=== PATIENT | male | born 1970 | race Two or more races ===

== ENCOUNTER 2018-04-27 10:13 | Outpatient (CLI) | payer OTHER ==
[~2018-04-27] VITALS: Ht 188 cm; Wt 149.7 kg
== END 2018-04-27 10:30 | disposition home or self-care (01) ==
LOC: OFIC 805 10:13
DX: G47.33 Obstructive sleep apnea (adult) (pediatric) (principal); M54.2 Cervicalgia; R51 Headache

== ENCOUNTER 2020-12-29 12:13 | Outpatient (CLI) | payer OTHER | END 2020-12-29 12:16 | disposition home or self-care (01) | LOC: LAB 12:13 | PROVIDERS: ATTEND Radiology Diagnostic Radiology | DX: N20.0 Calculus of kidney (principal) ==

== ENCOUNTER 2020-12-31 10:46 | Outpatient (CLI) | payer OTHER | END 2020-12-31 11:04 | disposition home or self-care (01) | LOC: TOM 10:46 | PROVIDERS: ATTEND Family Medicine | DX: Z00.00 Encounter for general adult medical examination without abnormal findings (principal); R05 Cough; R06.2 Wheezing ==

== ENCOUNTER 2021-01-13 11:55 | Emergency (ER) | payer OTHER ==
[~2021-01-13] VITALS: Ht 188 cm; Wt 158.8 kg
[2021-01-13] MEDS ORDERED: TYLENOL325 MG (15:03)
[2021-01-13] MEDS ORDERED: PEPCID AC20 MG PO (17:18)
== END 2021-01-13 17:27 | disposition home or self-care (01) ==
LOC: ER 11:55
DX: R10.84 Generalized abdominal pain (principal)

== ENCOUNTER 2021-09-24 12:54 | Emergency (ER) | payer OTHER ==
[~2021-09-24] VITALS: Ht 188 cm; Wt 154.2 kg
[~2021-09-24 12:54] MED LIST: PEPCID AC20 MG PO; TYLENOL325 MG
[2021-09-24] MEDS ORDERED: RAYOS1 MG PO (13:44)
[2021-09-24] MEDS ORDERED: CEPHALEXIN750 MG PO (13:44)
[2021-09-24] MEDS ORDERED: WAL-ITIN10 MG PO (13:45)
== END 2021-09-24 18:07 | disposition home or self-care (01) ==
LOC: ER 12:54
DX: L03.116 Cellulitis of left lower limb (principal); M25.473 Effusion, unspecified ankle; I10 Essential (primary) hypertension; Z20.822 Contact with and (suspected) exposure to COVID-19

== ENCOUNTER 2022-01-18 11:12 | Emergency (ER) | payer OTHER ==
[~2022-01-18] VITALS: Ht 188 cm; Wt 195.0 kg
[~2022-01-18 11:12] MED LIST changes: +CEPHALEXIN750 MG PO; +RAYOS1 MG PO; +WAL-ITIN10 MG PO
[2022-01-18] MEDS ORDERED: COZAAR50 MG PO (11:28)
[2022-01-18] MEDS ORDERED: CLARITHROMYCIN500 M1 PO (11:29)
[2022-01-18] MEDS ORDERED: AMOX1TAB5 PO (11:30)
[2022-01-18] MEDS ORDERED: PEPCID AC20 MG PO (11:30)
[2022-01-18] MEDS ORDERED: AZITHROMYCIN1 GM PO (11:31)
== END 2022-01-18 14:15 | disposition home or self-care (01) ==
LOC: ER 11:12
DX: L97.329 Non-pressure chronic ulcer of left ankle with unspecified severity (principal); R06.02 Shortness of breath

== ENCOUNTER 2022-01-24 09:56 | Emergency (ER) | payer OTHER ==
[~2022-01-24] VITALS: Ht 188 cm; Wt 186.0 kg
[~2022-01-24 09:56] MED LIST changes: +AMOX1TAB5 PO; +AZITHROMYCIN1 GM PO; +CLARITHROMYCIN500 M1 PO; +COZAAR50 MG PO
[2022-01-24] MEDS ORDERED: CEPHALEXIN750 MG (10:10)
[2022-01-24] MEDS ORDERED: WIXELA 500-501 EACH IH (10:10)
[2022-01-24] MEDS ORDERED: ATARAX25 MG PO (12:03)
[2022-01-24] MEDS ORDERED: ZYRTEC10 M3 PO (12:03)
== END 2022-01-24 12:51 | disposition home or self-care (01) ==
LOC: ER 09:56
DX: T78.40XA Allergy, unspecified, initial encounter (principal); X58.XXXA Exposure to other specified factors, initial encounter; Z91.013 Allergy to seafood; I10 Essential (primary) hypertension

== ENCOUNTER 2022-01-31 09:33 | Outpatient (CLI) | payer OTHER ==
[~2022-01-31 09:33] MED LIST changes: +ATARAX25 MG PO; +CEPHALEXIN750 MG; +WIXELA 500-501 EACH IH; +ZYRTEC10 M3 PO
== END 2022-01-31 09:34 | disposition home or self-care (01) ==
LOC: NUCLEAR 09:33
PROVIDERS: ATTEND Specialist
DX: I73.9 Peripheral vascular disease, unspecified (principal); Z91.013 Allergy to seafood

== ENCOUNTER 2022-02-01 09:57 | Outpatient (CLI) | payer OTHER | END 2022-02-01 09:59 | disposition home or self-care (01) | LOC: NUCLEAR 09:57 | PROVIDERS: ATTEND Specialist | DX: I87.2 Venous insufficiency (chronic) (peripheral) (principal); Z91.013 Allergy to seafood ==

== ENCOUNTER → 2022-09-26 | Emergency (ER) | payer OTHER ==
[~2022-09-26] VITALS: Ht 167.6 cm; Wt 161.0 kg
== END | disposition home or self-care (01) ==
LOC: ER 11:51 → MEDJ 19:22 → ER 19:22 → MEDJ 20:07
DX: I11.0 Hypertensive heart disease with heart failure (principal); I50.9 Heart failure, unspecified; L03.116 Cellulitis of left lower limb; N39.0 Urinary tract infection, site not specified; E87.8 Other disorders of electrolyte and fluid balance, not elsewhere classified; N17.9 Acute kidney failure, unspecified; J18.9 Pneumonia, unspecified organism; Z20.822 Contact with and (suspected) exposure to COVID-19

== ENCOUNTER 2024-11-23 14:24 | Inpatient (IN) | payer OTHER ==
[~2024-11-23] VITALS: Ht 182.9 cm; Wt 158.8 kg
[2024-11-23] MEDS ORDERED: AMIODARONE HCL100 MG PO (15:21)
[2024-11-23] MEDS ORDERED: HYDRALAZINE HC100 MG PO (15:22)
[2024-11-23] MEDS ORDERED: PEPCID AC20 MG PO (15:22)
[2024-11-23] MEDS ORDERED: LIPITOR40 M1 PO (15:22)
[2024-11-23] MEDS ORDERED: VITAMIN D310 MCG/1 M PO (15:22)
[2024-11-23] MEDS ORDERED: FARXIGA10 MG PO (15:22)
[2024-11-23] MEDS ORDERED: DOXAZOSIN MESYLA2 MG PO (15:22)
[2024-11-23] MEDS ORDERED: TOPROL XL100 M1 PO (15:23)
[2024-11-23] MEDS ORDERED: XARELTO20 MG PO (15:23)
[2024-11-23] MEDS ORDERED: ALDACTONE25 MG PO (15:23)
--- NOTE | 2024-11-23 15:33 | NUR ---
PACIENTE ALERTA Y ORIENTADO X3. REFIERE VENIR POR ULCERA EN QUINNNA СВЕТЛАНА. PACIENTE REFERIDO POR DR. MAIA AVILES PARA CONSULTA CON DR. BRADY. SE ESTIMAN VITALES Y SE UBICA.
[2024-11-23] MEDS ORDERED: 0.9 % SODIUM CHLORIDE 1,000 ML IV ONE (16:30)
[2024-11-23] MEDS ORDERED: PIPERACILLIN/TAZOBACTAM SODIUM 3.375 GM VIAL IV ONE ×2 (16:30→16:34)
--- NOTE | 2024-11-23 16:44 | NUR ---
SE ORIENTA A PACIENTE SOBRE [place] MEDICO, REFIERE ENTENDER. SE REALIZAN MUESTRAS DE LABORATORIO BAJO MEDIDAS ASEPTICAS. SE ADMINISTRAN MEDICAMENTOS MELISA ORDEN MEDICA. PENDIENTE RE-EVALUACION MEDICA.
[2024-11-23 17:15] LABS: HEMATOCRIT 41.1 % (39.0-48.0); HEMOGLOBIN 14.7 g/dL (13-16.00); MEAN CELL VOLUME 88.3 fL (80.0-100.00); MEAN CORPUSCULAR HEMOGLOBIN 31.5 pg (27.00-32.0); MEAN CORPUSCULAR HGB CONC 35.7 g/dl (32.0-36.0); RED BLOOD COUNT 4.66 M/uL (4.00-6.00)
[2024-11-23 17:29] LABS: PLATELET COUNT 73 K/uL (150-450)
[2024-11-23 17:49] LABS: INR 1.37; PARTIAL THROMBOPLASTIN TIME 37.4 SECONDS (22.0-34.0); PROTHROMBIN TIME 14.6 SECONDS (9.0-11.5)
[2024-11-23 17:52] LABS: ALBUMIN 3.5 gm/dL (3.4-5.0); BILIRUBIN TOTAL 1.66 mg/dL (0.3-1.2); CALCIUM 9.4 mg/dL (8.5-10.1); CREATININE SERUM 2.63 mg/dL (0.70-1.30); GFR 25.71; GLOBULINA 4.1 G/DL (2.4-3.5); POTASSIUM 4.27 mEq/L (3.5-5.1); TOTAL PROTEIN 7.6 gm/dL (6.4-8.2)
[2024-11-23 19:03] LABS: PH,URINE 5.5 (5.0-8.0); URINE APPEARANCE Clear; URINE BILIRRUBIN Negative (NEGATIVE); URINE BLOOD Negative; URINE COLOR Dark Yellow; URINE GLUCOSE Negative (NEGATIVE); URINE KETONE Trace (NEGATIVE); URINE LEUKOCYTE Negative; URINE NITRATE Negative; URINE UROBILINOGEN 0.2 E.U./dl
[2024-11-23 19:07] LABS: URINE BACTERIA 4.8 uL (0.0-1933); URINE EPITHELIAL CELLS 3.9 uL (0.0-38.8)
[2024-11-23 19:27] LABS: URINE CAST 1.17 uL (0.0-1.40); URINE PROTEIN 100 (NEGATIVE); URINE WBC 1.4 uL (0.0-23.2)
[2024-11-23] MEDS ORDERED: 0.9 % SODIUM CHLORIDE 1,000 ML IV SCH (23:30)
[2024-11-24 00:11] VITALS: BP 160/80; O2SAT 98
[2024-11-24 03:26] VITALS: BP 158/80
[2024-11-24 03:47] VITALS: BP 120/56
[2024-11-24] MEDS ORDERED: METOPROLOL SUCCINATE 100 MG TAB.SR.24H PO SCH (09:00)
[2024-11-24] MEDS ORDERED: SPIRONOLACTONE 25 MG TABLET PO SCH (09:00)
[2024-11-24] MEDS ORDERED: AMIODARONE HCL 200 MG TABLET PO SCH (09:00)
[2024-11-24] MEDS ORDERED: hydrALAZINE HCL 50 MG TABLET PO SCH (09:00)
[2024-11-24] MEDS ORDERED: PATIENTS OWN MEDICATION (MEDICAMENTO EN PISO) PO SCH (09:00)
[2024-11-24] MEDS ORDERED: DOXAZOSIN MESYLATE 2 MG TABLET PO SCH (09:00)
[2024-11-24] MEDS ORDERED: PANTOPRAZOLE SODIUM 40 MG in 0.9 % SODIUM CHLORIDE 8 ML IV PUSH SCH (09:00)
[2024-11-24] MEDS ORDERED: RIVAROXABAN 20 MG TABLET PO SCH (09:00)
[2024-11-24 09:18] VITALS: BP 112/68
[2024-11-24] MEDS ORDERED: FUROsemide 20 MG TABLET PO SCH (11:32)
[2024-11-24] MEDS ORDERED: MEROPENEM 500 MG/VIAL VIAL IV SCH (13:00)
[2024-11-24] MEDS ORDERED: ATORVASTATIN CALCIUM 40 MG TABLET PO SCH (17:00)
[2024-11-25 03:23] VITALS: BP 127/85
[2024-11-25 07:50] LABS: HEMATOCRIT 41.2 % (39.0-48.0); HEMOGLOBIN 14.1 g/dL (13-16.00); MEAN CELL VOLUME 90.1 fL (80.0-100.00); MEAN CORPUSCULAR HEMOGLOBIN 30.8 pg (27.00-32.0); MEAN CORPUSCULAR HGB CONC 34.1 g/dl (32.0-36.0); RED BLOOD COUNT 4.57 M/uL (4.00-6.00); RED CELL DISTRIBUTION WIDTH 14.8 % (11.5-14.5)
[2024-11-25 08:07] LABS: ALBUMIN 3.1 gm/dL (3.4-5.0); BILIRUBIN TOTAL 1.58 mg/dL (0.3-1.2); CALCIUM 8.7 mg/dL (8.5-10.1); CHOL HDL RATIO 1.9 (0-5.0); CREATININE SERUM 2.37 mg/dL (0.70-1.30); GFR 28.99; GLOBULINA 3.2 G/DL (2.4-3.5); MAGNESIUM 1.9 mg/dL (1.8-2.4); POTASSIUM 4.28 mEq/L (3.5-5.1); TOTAL PROTEIN 6.3 gm/dL (6.4-8.2); TSH 1.55 uIU/mL (0.358-3.74)
[2024-11-25] MEDS ORDERED: LACTOBACILLUS ACIDOPHILUS 1 CAP CAP PO SCH (09:00)
[2024-11-25] MEDS ORDERED: CHLORHEXIDINE GLUCONATE 120 ML BOTTLE TOP SCH (09:00)
[2024-11-25 09:07] VITALS: BP 163/100; O2SAT 99
[2024-11-25 10:19] LABS: PLATELET COUNT 68 K/uL (150-450)
[2024-11-25] MEDS ORDERED: NIFEDIPINE 30 MG TAB.SA.OSM PO NR (12:00)
[2024-11-25 17:04] VITALS: BP 162/118
[2024-11-26 01:06] VITALS: BP 160/80
[2024-11-26 07:37] LABS: ALBUMIN 3.1 gm/dL (3.4-5.0); BILIRUBIN TOTAL 1.26 mg/dL (0.3-1.2); CALCIUM 8.9 mg/dL (8.5-10.1); CREATININE SERUM 2.09 mg/dL (0.70-1.30); GFR 33.51; GLOBULINA 3.3 G/DL (2.4-3.5); POTASSIUM 4.02 mEq/L (3.5-5.1); TOTAL PROTEIN 6.4 gm/dL (6.4-8.2)
[2024-11-26] MEDS ORDERED: SPIRONOLACTONE 25 MG TABLET PO SCH (09:00)
[2024-11-26] MEDS ORDERED: NIFEDIPINE 30 MG TAB.SA.OSM PO SCH (09:00)
[2024-11-26 09:12] VITALS: BP 166/94; O2SAT 96
[2024-11-26] MEDS ORDERED: NIFEDIPINE 60 MG TAB.SA.OSM PO STA (10:53)
[2024-11-26 18:15] VITALS: BP 155/102
[2024-11-26] MEDS ORDERED: SACUBITRIL/VALSARTAN 1 EACH TABLET PO SCH (18:31)
[2024-11-27 01:41] VITALS: BP 155/94
[2024-11-27 06:31] LABS: HEMATOCRIT 43.8 % (39.0-48.0); HEMOGLOBIN 14.9 g/dL (13-16.00); MEAN CELL VOLUME 90.1 fL (80.0-100.00); MEAN CORPUSCULAR HEMOGLOBIN 30.6 pg (27.00-32.0); RED BLOOD COUNT 4.86 M/uL (4.00-6.00); RED CELL DISTRIBUTION WIDTH 15.1 % (11.5-14.5)
[2024-11-27 06:57] LABS: BILIRUBIN TOTAL 1.22 mg/dL (0.3-1.2); CALCIUM 9.3 mg/dL (8.5-10.1); CREATININE SERUM 1.76 mg/dL (0.70-1.30); GFR 40.87; GLOBULINA 3.5 G/DL (2.4-3.5); MAGNESIUM 1.8 mg/dL (1.8-2.4); PHOSPHOROUS 3.1 mg/dL (2.5-4.9); TOTAL PROTEIN 6.5 gm/dL (6.4-8.2)
[2024-11-27 08:42] LABS: PLATELET COUNT 90 K/uL (150-450)
[2024-11-27] MEDS ORDERED: NIFEDIPINE 90 MG TAB.SA.OSM PO SCH (09:00)
[2024-11-27] MEDS ORDERED: NIFEDIPINE 60 MG TAB.SA.OSM PO SCH (09:00)
[2024-11-27 09:32] VITALS: BP 138/80
[2024-11-27 17:32] VITALS: BP 130/77; O2SAT 96
[2024-11-28 03:14] VITALS: BP 91/60
[2024-11-28 07:22] LABS: BILIRUBIN TOTAL 1.15 mg/dL (0.3-1.2); CALCIUM 9.3 mg/dL (8.5-10.1); CREATININE SERUM 2.04 mg/dL (0.70-1.30); GFR 34.46; GLOBULINA 3.5 G/DL (2.4-3.5); POTASSIUM 3.91 mEq/L (3.5-5.1); TOTAL PROTEIN 6.5 gm/dL (6.4-8.2)
[2024-11-28 08:49] VITALS: BP 119/98
[2024-11-28] MEDS ORDERED: COLLAGENASE CLOSTRIDIUM HIST. 30 GM TUBE TOP SCH (09:00)
[2024-11-28 18:29] VITALS: BP 113/88
[2024-11-29 02:57] VITALS: BP 126/85; O2SAT 92
[2024-11-29] MEDS ORDERED: NIFEDIPINE 30 MG TAB.SA.OSM PO SCH (09:00)
[2024-11-29 09:19] VITALS: BP 110/70; O2SAT 94
[2024-11-29 13:59] LABS: ALBUMIN 2.8 gm/dL (3.4-5.0); GFR 35.26; GLOBULINA 3.3 G/DL (2.4-3.5); POTASSIUM 4.15 mEq/L (3.5-5.1); TOTAL PROTEIN 6.1 gm/dL (6.4-8.2)
[2024-11-29 17:36] VITALS: BP 103/78
[2024-11-30 01:51] VITALS: BP 124/80; O2SAT 97
[2024-11-30 09:42] VITALS: BP 131/73; O2SAT 96
[2024-11-30 11:50] LABS: HEMATOCRIT 46.5 % (39.0-48.0); HEMOGLOBIN 15.3 g/dL (13-16.00); MEAN CORPUSCULAR HEMOGLOBIN 30.3 pg (27.00-32.0); RED BLOOD COUNT 5.05 M/uL (4.00-6.00); RED CELL DISTRIBUTION WIDTH 15.1 % (11.5-14.5)
[2024-11-30 11:51] LABS: BILIRUBIN TOTAL 0.99 mg/dL (0.3-1.2); CALCIUM 9.2 mg/dL (8.5-10.1); CREATININE SERUM 1.96 mg/dL (0.70-1.30); GFR 36.09; GLOBULINA 3.6 G/DL (2.4-3.5); POTASSIUM 4.08 mEq/L (3.5-5.1); TOTAL PROTEIN 6.6 gm/dL (6.4-8.2)
[2024-11-30 11:52] LABS: PLATELET COUNT 113 K/uL (150-450)
[2024-11-30 12:09] LABS: hav igm Negative (Negative); hcv Non Reactive (Non Reactive); hep b c Negative (Negative); hep b s ag Negative (Negative)
[2024-11-30 18:20] VITALS: BP 142/102; O2SAT 98
[2024-12-01 02:50] VITALS: BP 118/90; O2SAT 99
[2024-12-01 12:04] VITALS: BP 116/67
[2024-12-01] MEDS ORDERED: FARXIGA10 MG PO (16:51)
[2024-12-01] MEDS ORDERED: ENTRESTO 24 MG1 EACH PO (16:51)
[2024-12-01] MEDS ORDERED: NIFEDIPINE ER30 M1 PO (16:51)
[2024-12-01] MEDS ORDERED: XARELTO20 MG PO (16:51)
[2024-12-01] MEDS ORDERED: LIPITOR40 M1 PO (16:51)
[2024-12-01] MEDS ORDERED: SPIRONOLACTONE25 MG PO (16:51)
[2024-12-01] MEDS ORDERED: TOPROL XL100 M1 PO (16:51)
[2024-12-01] MEDS ORDERED: DOXAZOSIN MESYLA2 MG PO (16:51)
[2024-12-01] MEDS ORDERED: AMIODARONE HCL200 MG PO (16:51)
[2024-12-01] MEDS ORDERED: FUROSEMIDE20 MG PO (16:51)
[2024-12-01] MEDS ORDERED: HYDRALAZINE HCL50 MG PO (16:51)
== END 2024-12-01 19:26 | disposition home or self-care (01) | DRG 593 ==
LOC: ER 14:26 → SEC-K 11-24 00:25 → MEDJ 11-24 00:25
PROVIDERS: General Practice; Internal Medicine; ADMIT Internal Medicine; ATTEND Internal Medicine
PROC: B44HZZZ Ultrasonography of Bilateral Lower Extremity Arteries (ICD-10-PCS; principal; 2024-11-24)
PROC: B24BZZZ Ultrasonography of Heart with Aorta (ICD-10-PCS; 2024-11-24)
PROC: B54DZZZ Ultrasonography of Bilateral Lower Extremity Veins (ICD-10-PCS; 2024-11-24)
PROC: 8E0ZXY6 Isolation (ICD-10-PCS; 2024-11-24)
PROC: BT43ZZZ Ultrasonography of Bilateral Kidneys (ICD-10-PCS; 2024-11-29)
DX: L97.329 Non-pressure chronic ulcer of left ankle with unspecified severity (principal); I50.20 Unspecified systolic (congestive) heart failure; L03.126 Acute lymphangitis of left lower limb; N17.9 Acute kidney failure, unspecified; E66.01 Morbid (severe) obesity due to excess calories; I48.91 Unspecified atrial fibrillation; B96.89 Other specified bacterial agents as the cause of diseases classified elsewhere; D69.6 Thrombocytopenia, unspecified; G47.33 Obstructive sleep apnea (adult) (pediatric); I87.2 Venous insufficiency (chronic) (peripheral); I12.9 Hypertensive chronic kidney disease with stage 1 through stage 4 chronic kidney disease, or unspecified chronic kidney disease; N18.9 Chronic kidney disease, unspecified